=== PATIENT | female | born 1990 | race Hispanic/Latino ===

== ENCOUNTER 2019-05-31 05:59 | Inpatient (IN) | payer BC ==
[~2019-05-31] VITALS: Ht 175.3 cm; Wt 89.8 kg
[2019-06-04] MEDS ORDERED: LACTATED RINGERS 1000ML 1,000 ML IV PRN (06:16)
[2019-06-04] MEDS ORDERED: OXYTOCIN 10 USP UNITS/ML 20 UNIT in LACTATED RINGERS 1000ML 1,000 ML IV SCH (06:30)
[2019-06-04] MEDS ORDERED: PREN1TAB80 PO (06:37)
[2019-06-04 07:13] LABS: APPEARANCE,URINE Clear (CLEAR); BILIRUBIN,URINE Negative (NEGATIVE); COLOR,URINE Yellow (YELLOW); GLUCOSE, URINE (UA) Negative (NEGATIVE); KETONES,URINE Negative (NEGATIVE); LEUKOCYTE ESTERASE ,URINE Trace (NEGATIVE); NITRATE,URINE Negative (NEGATIVE); OCCULT BLOOD,URINE Negative (NEGATIVE); PROTEIN,URINE Negative (NEGATIVE); UROBILINOGEN,URINE 0.2 mg/dL (0.2-1.0)
[2019-06-04 07:20] LABS: BACTERIA,URINE Few /HPF (None Seen); RBC,URINE 0-1 /HPF (0-1); SQUAMOUS EPITHELIAL CELL,UR Rare /HPF (0-2); WBC,URINE 0-1 /HPF (0-1)
[2019-06-04 07:40] LABS: HEMATOCRIT 35.1 % (36-48); MEAN CORPUSCULAR HEMOGLOBIN 31.1 pg (27.0-33.0); MEAN CORPUSCULAR HGB CONC 34.3 g/dL (32.0-36.0); MEAN CORPUSCULAR VOLUME 90.5 fL (79-99); PLATELET COUNT (AUTO) 139 K/uL (130-400); RED BLOOD CELL COUNT(AUTO) 3.87 MIL/uL (4.00-5.50); RED CELL DISTRIBUTION WIDTH 13.9 % (11.0-15.5); WHITE BLOOD COUNT (AUTO) 9.8 K/uL (4.8-10.8)
[2019-06-04] MEDS ORDERED: OXYTOCIN-LR 20 UNITS/1000 ML 1,000 ML IV ONE ×2 (07:50→15:37)
[2019-06-04] MEDS ORDERED: BENZOCAINE/LANOLIN/ALOE VERA 60 ML AEROSOL TP PRN (16:45)
[2019-06-04] MEDS ORDERED: WITCH HAZEL 1 PAD TP PRN (16:45)
[2019-06-04] MEDS ORDERED: ACETAMINOPHEN-CODEINE 300/30MG TAB PO PRN (16:45)
[2019-06-04] MEDS ORDERED: OXYTOCIN-LR 20 UNITS/1000 ML 1,000 ML IV SCH (16:45)
[2019-06-04] MEDS ORDERED: LANOLIN 30GM OINTMENT TP PRN (16:45)
[2019-06-04] MEDS ORDERED: DIPH,PERTUSS(ACELL),TET VAC/PF 0.5 ML VIAL IM PRN (16:45)
[2019-06-04] MEDS: IBUPROFEN 600 MG TABLET PO PRN ×2 (16:59→19:50)
[2019-06-04] MEDS: DOCUSATE SODIUM 100 MG CAP PO SCH (19:49)
[2019-06-04 20:43] VITALS: BP 113/65
--- NOTE | 2019-06-04 20:59 | NUR ---
Patient received from L&D: Patient came via wheelchair accompanied by Marlon Antony RN. Patient and mother oriented to the room, call light given. Plan of care discussed with her, verbalizes understanding.
[2019-06-04 22:54] VITALS: BP 113/65
[2019-06-04 23:10] VITALS: BP 100/60
[2019-06-05 03:30] VITALS: BP 110/69
[2019-06-05 07:50] VITALS: BP 108/67
[2019-06-05 08:12] LABS: HEPATITIS Bs ANTIGEN SCREEN P Negative (Negative)
[2019-06-05] MEDS: DOCUSATE SODIUM 100 MG CAP PO SCH (08:50)
[2019-06-05] MEDS: IBUPROFEN 600 MG TABLET PO PRN ×2 (08:51→17:01)
--- NOTE | 2019-06-05 09:00 | NUR ---
DR. ANDERSON ROUNDED AND DISCHARGED PATIENT TO HOME ONCE BABY IS DISCHARGED. PATIENT HAS REMAINED STABLE AND VITAL SIGNS ARE WITHIN NORMAL LIMITS. DENIES PAIN AT THIS TIME.
[2019-06-05 12:14] VITALS: BP 109/58
--- NOTE | 2019-06-05 13:30 | NUR ---
DISCHARGE INSTRUCTIONS GIVEN AND PATIENT INSTRUCTED TO TAKE MOTRIN OVER THE COUNTER X 3 TABS OF 200MGS EVERY 6 HOURS NEEDED FOR CRAMPING OR PAIN. VERBALIZED UNDERSTANDING INSTRUCTIONS GIVEN.
[2019-06-05 15:32] VITALS: BP 93/58
--- NOTE | 2019-06-05 16:56 | NUR ---
MEDICATED WITH MOTRIN 600MGS FOR UTERINE CRAMPING. PATIENT AT THIS TIME.
[2019-06-05 17:10] VITALS: BP 106/65
--- NOTE | 2019-06-05 18:10 | NUR ---
PATIENT WAS TAKEN VIA W/C TO FAMILY VEHICLE CARRYING BABY IN CARSEAT AND WAS DISCHARGED TO SPOUSE IN STABLE CONDITION.
== END 2019-06-05 18:10 | disposition home or self-care (01) | DRG 807 ==
LOC: EDSTATUS 05:59 → LDH 06-04 06:00 → WSH 06-04 20:25
PROC: 10E0XZZ Delivery of Products of Conception, External Approach (ICD-10-PCS; principal; 2019-06-04)
PROC: 3E0234Z Introduction of Serum, Toxoid and Vaccine into Muscle, Percutaneous Approach (ICD-10-PCS; 2019-06-04)
PROC: 10907ZC Drainage of Amniotic Fluid, Therapeutic from Products of Conception, Via Natural or Artificial Opening (ICD-10-PCS; 2019-06-04)
PROC: 3E033VJ Introduction of Other Hormone into Peripheral Vein, Percutaneous Approach (ICD-10-PCS; 2019-06-04)
DX: O69.81X0 Labor and delivery complicated by cord around neck, without compression, not applicable or unspecified (principal); Z37.0 Single live birth; O76 Abnormality in fetal heart rate and rhythm complicating labor and delivery; O71.82 Other specified trauma to perineum and vulva; Z3A.40 40 weeks gestation of pregnancy; Z23 Encounter for immunization; O70.0 First degree perineal laceration during delivery
CPT/HCPCS: 36415; 81001; 85027; 86592; 86850; 86900; 86901; 87340; G0378; J2590